=== PATIENT | female | born 1945 | race Caucasian/White ===

== ENCOUNTER 2024-01-07 13:33 | Inpatient (IN) | payer OTHER ==
[~2024-01-07] VITALS: Ht 157.5 cm; Wt 54.4 kg
[2024-01-07 15:04] LABS: BASOPHILS # (AUTO) 0.1 K/UL (0.0-0.2); BASOPHILS % (AUTO) 1.7 % (0.0-2.0); EOSINOPHILS # (AUTO) 0.1 K/uL (0.0-0.7); EOSINOPHILS % (AUTO) 1.6 % (0.0-7.0); HEMATOCRIT 33.8 % (31.2-41.9); HEMOGLOBIN 10.1 g/dL (10.9-14.3); LYMPHOCYTES # (AUTO) 2.2 K/uL (0.8-4.8); LYMPHOCYTES % (AUTO) 38.1 % (20.5-51.5); MEAN CORPUSCULAR HEMOGLOBIN 19.6 uug (24.7-32.8); MEAN CORPUSCULAR HGB CONC 30 g/dL (32.3-35.6); MEAN CORPUSCULAR VOLUME 65.8 fL (75.5-95.3); MONOCYTES # (AUTO) 0.2 K/uL (0.1-1.30); NEUTROPHILS # (AUTO) 3.2 K/uL (1.8-8.9); NEUTROPHILS % (AUTO) 55.6 % (38.5-71.5); PLATELET COUNT (AUTO) 256 K/uL (179-408); RED BLOOD CELL COUNT(AUTO) 5.14 MIL/uL (3.63-4.92); RED CELL DISTRIBUTION WIDTH 18.4 % (12.3-17.7); WHITE BLOOD COUNT (AUTO) 5.8 K/uL (3.8-11.8)
[2024-01-07 15:18] LABS: CARBON DIOXIDE 28 mmol/L (21-32); CHLORIDE 110 mmol/L (98-107); GLUCOSE 119 mg/dL (74-106); POTASSIUM 4.7 mmol/L (3.5-5.1); SODIUM SERUM 146 mmol/L (136-145); UREA NITROGEN, BLOOD 25 mg/dL (7-18)
[2024-01-07 15:34] LABS: DIFFERENTIAL COMMENT 1
[2024-01-07 15:35] LABS: ALANINE AMINOTRANSFERASE 16 U/L (14-59); ALBUMIN 2.3 g/dL (3.4-5.0); ALKALINE PHOSPHATASE 70 U/L (50-136); ASPARTATE AMINOTRANSFERASE 28 U/L (15-37); BILIRUBIN,DIRECT 0.1 mg/dL (0.0-0.2); BILIRUBIN,TOTAL 0.3 mg/dL (0.2-1.0); NT-PRO BNP 15723 pg/mL (0-125); TOTAL PROTEIN, SERUM 6.8 g/dL (6.4-8.2)
[2024-01-07 15:39] LABS: MAGNESIUM 1.9 mg/dL (1.8-2.4)
[2024-01-07 15:45] LABS: THYROID STIMULATING HORMONE 2.4 mIU/mL (0.358-3.740)
[2024-01-07 16:22] LABS: IRON, SERUM 32 ug/dL (50-175)
[2024-01-07] MEDS: CLONIDINE HCL 0.1 MG TABLET PO ONE (16:45)
[2024-01-07] MEDS ORDERED: LORAZEPAM 2 MG/1 ML VIAL ONE (16:47)
[2024-01-07] MEDS: LORAZEPAM 2 MG/1 ML VIAL IV ONE (16:51)
[2024-01-07] MEDS ORDERED: LOSA100T31 PO (17:27)
[2024-01-07] MEDS ORDERED: AMLO10TA59 PO (17:27)
[2024-01-07] MEDS ORDERED: DABI150C PO (17:27)
[2024-01-07] MEDS ORDERED: FUROSEMIDE 20 MG/2 ML VIAL ONE (17:49)
[2024-01-07] MEDS: FUROSEMIDE 20 MG/2 ML VIAL IV ONE (17:52)
[2024-01-07 17:56] LABS: BAND % (MANUAL) 2 % (0-10); EOSINOPHILS % (MANUAL) 4 % (0-8); LYMPHOCYTES % (MANUAL) 25 % (20-40); MONOCYTES % (MANUAL) 6 % (2-10); NEUTROPHILS % (MANUAL) 63 % (42-75)
[2024-01-07 17:57] LABS: PLATELET ESTIMATE ADEQUATE
[2024-01-07 17:59] LABS: ANISOCYTOSIS 3+; HYPOCHROMASIA 2+
[2024-01-07 18:21] VITALS: BP 182/111; TEMP 98.3; O2SAT 100
[2024-01-07 18:22] VITALS: O2SAT 96
[2024-01-07] MEDS ORDERED: REMEDY ESSENTIAL ZINC PASTE 113 GM TP PRN (18:30)
[2024-01-07] MEDS ORDERED: ONDANSETRON 4 MG/2 ML VIAL IV PRN (18:30)
[2024-01-07] MEDS: AMLODIPINE 10 MG TABLET PO SCH (18:50)
[2024-01-07] MEDS: BUMETANIDE INJ 6 MG in IV DEXTROSE 5% 36 ML IV ONE (19:10)
[2024-01-07 19:51] VITALS: BP 146/101; O2SAT 100
[2024-01-07 20:40] LABS: *BILIRUBIN,URIN NEGATIVE (NEGATIVE); *CLARITY,URINE CLEAR (CLEAR); *COLOR,URINE YELLOW (YELLOW); *KETONES,URINE TRACE (NEGATIVE); *PROTEIN,URINE 3+ (NEGATIVE); *UROBILINOGEN,URINE 0.2 E.U./dl (NORMAL); LEUKOCYTE ESTERASE ,URINE NEGATIVE (NEGATIVE); NITRITE, URINE NEGATIVE (NEGATIVE); UGLUCOSE NEGATIVE (NEGATIVE)
[2024-01-07 20:46] LABS: *BLOOD, URINE TRACE (NEGATIVE); BACTERIA,URINE RARE /HPF (NONE SEEN); SQUAMOUS EPITHELIAL CELL,UR FEW /HPF (NONE SEEN); WBC,URINE 0-3 /HPF (0-3)
[2024-01-07] MEDS: APIXABAN 5 MG TABLET PO SCH (20:56)
[2024-01-07 21:00] VITALS: BP 136/89; O2SAT 100
[2024-01-07 22:24] VITALS: O2SAT 96
[2024-01-07 23:51] VITALS: BP 143/85; TEMP 98; O2SAT 100
[2024-01-08 01:57] VITALS: BP 135/88; O2SAT 100
[2024-01-08 03:43] VITALS: BP 137/87; TEMP 98.3; O2SAT 98
[2024-01-08 05:11] LABS: BASOPHILS % (AUTO) 0.7 % (0.0-2.0); EOSINOPHILS # (AUTO) 0.1 K/uL (0.0-0.7); EOSINOPHILS % (AUTO) 2.2 % (0.0-7.0); HEMATOCRIT 33.3 % (31.2-41.9); HEMOGLOBIN 10.1 g/dL (10.9-14.3); LYMPHOCYTES % (AUTO) 41.9 % (20.5-51.5); MEAN CORPUSCULAR HEMOGLOBIN 19.9 uug (24.7-32.8); MEAN CORPUSCULAR HGB CONC 30 g/dL (32.3-35.6); MEAN CORPUSCULAR VOLUME 65.8 fL (75.5-95.3); MONOCYTES # (AUTO) 0.2 K/uL (0.1-1.30); MONOCYTES % (AUTO) 4.3 % (0.0-11.0); NEUTROPHILS # (AUTO) 2.4 K/uL (1.8-8.9); NEUTROPHILS % (AUTO) 50.9 % (38.5-71.5); PLATELET COUNT (AUTO) 249 K/uL (179-408); RED BLOOD CELL COUNT(AUTO) 5.06 MIL/uL (3.63-4.92); RED CELL DISTRIBUTION WIDTH 18.3 % (12.3-17.7); WHITE BLOOD COUNT (AUTO) 4.7 K/uL (3.8-11.8)
[2024-01-08 05:33] LABS: DIFFERENTIAL COMMENT 1
[2024-01-08 06:00] LABS: ALANINE AMINOTRANSFERASE 16 U/L (14-59); ALBUMIN 2.3 g/dL (3.4-5.0); ALKALINE PHOSPHATASE 65 U/L (50-136); ASPARTATE AMINOTRANSFERASE 22 U/L (15-37); BILIRUBIN,TOTAL 0.3 mg/dL (0.2-1.0); CARBON DIOXIDE 34 mmol/L (21-32); CHLORIDE 109 mmol/L (98-107); CREATININE 0.9 mg/dL (0.6-1.3); GLUCOSE 94 mg/dL (74-106); MAGNESIUM 1.7 mg/dL (1.8-2.4); PHOSPHOROUS 3.6 mg/dL (2.5-4.9); POTASSIUM 3.6 mmol/L (3.5-5.1); SODIUM SERUM 149 mmol/L (136-145); TOTAL PROTEIN, SERUM 6.4 g/dL (6.4-8.2); UREA NITROGEN, BLOOD 23 mg/dL (7-18)
[2024-01-08 06:29] LABS: CHOLESTEROL 246 mg/dL (<200); HDL CHOLESTEROL 86 mg/dL (40-60); TRIGLYCERIDES 138 MG/DL (30-150)
[2024-01-08 06:36] LABS: LYMPHOCYTES % (MANUAL) 39 % (20-40); MONOCYTES % (MANUAL) 6 % (2-10); NEUTROPHILS % (MANUAL) 55 % (42-75)
[2024-01-08] MEDS: PANTOPRAZOLE SODIUM 40 MG TABLET.DR PO SCH (06:36)
[2024-01-08] MEDS ORDERED: NOREPINEPHRINE BITARTRATE 32 MG in IV NORMAL SALINE 218 ML IV PRN (07:45)
[2024-01-08 08:00] VITALS: BP 160/89; TEMP 98; O2SAT 98
[2024-01-08] MEDS ORDERED: NOREPINEPHRINE 8MG/NS 250ML 250 ML IV PRN ×2 (08:00→08:15)
[2024-01-08] MEDS: ASPIRIN EC 81 MG TABLET.DR PO SCH (08:24)
[2024-01-08] MEDS: hydrALAZINE HCL 20 MG/1 ML VIAL IV PRN (09:12)
[2024-01-08 09:41] LABS: THYROID STIMULATING HORMONE 3.292 mIU/mL (0.358-3.740)
[2024-01-08] MEDS: MAGNESIUM SULFATE/D5W 100 ML IV SCH (10:23)
[2024-01-08] MEDS: ATORVASTATIN 40 MG TABLET PO SCH (10:45)
[2024-01-08] MEDS: OLANZAPINE 10 MG VIAL IM ONE (11:12)
[2024-01-08 12:00] VITALS: BP 130/93; TEMP 98.3; O2SAT 100
[2024-01-08] MEDS: ACETAMINOPHEN 325 MG TABLET PO PRN (13:45)
[2024-01-08 13:47] VITALS: O2SAT 98
[2024-01-08 16:00] VITALS: BP 145/96; TEMP 98.3; O2SAT 98
[2024-01-08] MEDS ORDERED: LOSARTAN POTASSIUM 50 MG TABLET PO SCH (18:19)
== END 2024-01-08 17:20 | disposition short-term general hospital (02) | DRG 280 ==
LOC: ER 13:35 → CCU 17:31
PROVIDERS: ADMIT Nurse Practitioner Acute Care; ATTEND Nurse Practitioner Acute Care
DX: I11.0 Hypertensive heart disease with heart failure (principal); G93.41 Metabolic encephalopathy; I21.A1 Myocardial infarction type 2; I50.33 Acute on chronic diastolic (congestive) heart failure; J96.21 Acute and chronic respiratory failure with hypoxia; E87.0 Hyperosmolality and hypernatremia; D68.59 Other primary thrombophilia; F03.911 Unspecified dementia, unspecified severity, with agitation; F03.94 Unspecified dementia, unspecified severity, with anxiety; D63.8 Anemia in other chronic diseases classified elsewhere; E78.5 Hyperlipidemia, unspecified; Z79.02 Long term (current) use of antithrombotics/antiplatelets; Z88.0 Allergy status to penicillin; Z86.711 Personal history of pulmonary embolism; Z85.118 Personal history of other malignant neoplasm of bronchus and lung; I27.20 Pulmonary hypertension, unspecified; Z99.81 Dependence on supplemental oxygen
CPT/HCPCS: 36415; 70030-TC; 70450; 71045; 83550; 83605; 83735; 84100; 84443; 84484; 85025; 85730; 93307; A4606; A4663; G0378; J0360; J1940; J2060; J2358; J3475; J3490